=== PATIENT | male | born 1995 | race Caucasian/White ===

== ENCOUNTER 2016-06-04 20:39 | Emergency (ER) | payer OTHER ==
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
== END 2016-06-04 21:00 | disposition home or self-care (01) ==
LOC: ER 20:39
DX: F10.129 Alcohol abuse with intoxication, unspecified (principal)